=== PATIENT | female | born 1960 | race African-American/Black ===

== ENCOUNTER 2017-03-12 08:00 | Outpatient (CLI) | payer BC | END 2017-03-12 08:01 | disposition home or self-care (01) | LOC: BICMAMMO 08:00 | DX: Z12.31 Encounter for screening mammogram for malignant neoplasm of breast (principal); R92.1 Mammographic calcification found on diagnostic imaging of breast | CPT/HCPCS: 77063; 77067; G0202 ==

== ENCOUNTER 2024-10-13 11:03 | Outpatient (CLI) | payer BC | END 2024-10-13 11:04 | disposition home or self-care (01) | LOC: SCSMRI 11:03 | PROVIDERS: ATTEND Family Medicine | DX: R41.3 Other amnesia (principal) | CPT/HCPCS: 70551 ==

== ENCOUNTER 2025-03-15 14:10 | Outpatient (CLI) | payer BC | END 2025-03-15 14:11 | disposition home or self-care (01) | LOC: BICRAD 14:10 | PROVIDERS: ATTEND Family Medicine | DX: M25.552 Pain in left hip (principal) ==